=== PATIENT | female | born 1960 | race Caucasian/White ===

== ENCOUNTER → 2017-03-03 09:06 | Outpatient (CLI) | payer MEDICARE ==
[2010-04-04 15:18] VITALS: BMI 23.2
== END | disposition home or self-care (01) ==
LOC: D.CT 09:06
DX: R05 Cough (principal); Z80.1 Family history of malignant neoplasm of trachea, bronchus and lung; S22.39XA Fracture of one rib, unspecified side, initial encounter for closed fracture; R63.4 Abnormal weight loss

== ENCOUNTER 2017-08-19 10:28 | Emergency (ER) | payer MEDICARE ==
[2010-04-04 15:18] VITALS: BMI 23.2
== END 2017-08-19 13:59 | disposition home or self-care (01) ==
LOC: D.ER 10:28
DX: R07.89 Other chest pain (principal); I10 Essential (primary) hypertension; S00.83XA Contusion of other part of head, initial encounter; V43.62XA Car passenger injured in collision with other type car in traffic accident, initial encounter; Y93.89 Activity, other specified; Y92.410 Unspecified street and highway as the place of occurrence of the external cause; G40.909 Epilepsy, unspecified, not intractable, without status epilepticus; J44.9 Chronic obstructive pulmonary disease, unspecified; F17.200 Nicotine dependence, unspecified, uncomplicated

== ENCOUNTER 2020-07-08 10:08 | Inpatient (IN) | payer MEDICARE ==
[~2020-07-08] VITALS: Ht 162.6 cm; Wt 61.4 kg
[2020-07-08 10:11] VITALS: Ht 162.6 cm; Wt 61.4 kg
[2020-07-08] MEDS ORDERED: ZONEGRAN100 MG PO (10:17)
[2020-07-08] MEDS ORDERED: CARBATROL300 MG PO (10:17)
[2020-07-08] MEDS ORDERED: KEPPRA1000 MG PO (10:17)
[2020-07-08] MEDS ORDERED: LAMICTAL200 M1 PO (10:18)
[2020-07-08 10:30] VITALS: BP 144/83
--- NOTE | 2020-07-08 10:50 | NUR ---
PT TO RADIOLOGY VIA STRETCHER AT THIS TIME.
[2020-07-08 10:52] LABS: BASOPHILS 0.6 % (0-2); EOSINOPHILS 2.1 % (0-7); HEMATOCRIT 40.2 % (36.0-48.0); HEMOGLOBIN 13.5 g/dL (12-16); IMMATURE GRANULOCYTES 0.3 % (0-5); LYMPHOCYTES 19.8 % (15-50); MCH 32.8 pg (26.0-34.0); MCHC 33.6 g/dL (31.0-37.0); MCV 97.6 fL (80.0-100.0); MEAN PLATELET VOLUME 11.4 fL (7.4-10.4); MONOCYTES 6.2 % (2-11); PLATELET COUNT 191 10x3/uL (130-400); RBC 4.12 10x6/uL (4.00-5.40); RDW 12.5 % (11.5-14.5); WBC 3.4 10x3/uL (4.8-10.8)
[2020-07-08 10:58] LABS: APTT 34.8 SECONDS (22.8-39.4); INR 0.98 (0.85-1.17)
[2020-07-08 11:00] LABS: CALC OSMOLALITY 279 mosm/kg (275-300); CALCIUM 8.5 mg/dL (8.5-10.1); CHLORIDE - SERUM 105 mmol/L (98-107); CREATININE - SERUM 0.6 mg/dL (0.6-1.3); POTASSIUM - SERUM 4.2 mmol/L (3.5-5.1); SODIUM 139 mmol/L (136-145); UREA NITROGEN 11 mg/dL (7-18); eGFR NON AFRICAN AMERICAN > 90 mL/min (90-120)
[2020-07-08 11:02] LABS: GLUCOSE 147 mg/dL (74-106)
[2020-07-08 11:17] LABS: ALBUMIN 3.6 g/dL (3.4-5.0); ALKALINE PHOSPHATASE 136 U/L (30-120); ALT (SGPT) 14 U/L (10-68); BILIRUBIN - TOTAL 0.19 mg/dL (0.2-1.3); CKMB 1.5 U/L (0.0-3.6); CREATINE KINASE 63 UL (21-215); PROTEIN - SERUM 7.3 g/dL (6.4-8.2); THYROID STIMULATING HORMONE 0.82 uIU/mL (0.36-3.74); TROPONIN-I < 0.017 ng/mL (0.000-0.060)
--- NOTE | 2020-07-08 11:36 | NUR ---
STRAIGHT CATH PERFORMED TO COLLECT A URINE SAMPLE FROM THE PT.
[2020-07-08 11:39] LABS: BILIRUBIN NEGATIVE (NEGATIVE); KETONE NEGATIVE (NEGATIVE); NITRITE NEGATIVE (NEGATIVE); UROBILINOGEN NORMAL mg/dL (< 2)
[2020-07-08 11:46] LABS: UDS - AMPHET NEGATIVE QUAL (NEGATIVE); UDS - BARB NEGATIVE QUAL (NEGATIVE); UDS - BENZO NEGATIVE QUAL (NEGATIVE); UDS - COCAINE NEGATIVE QUAL (NEGATIVE); UDS - OPIATE NEGATIVE QUAL (NEGATIVE); UDS - PCP NEGATIVE QUAL (NEGATIVE); UDS - THC NEGATIVE QUAL (NEGATIVE)
[2020-07-08 14:26] LABS: CKMB 1.5 U/L (0.0-3.6); CREATINE KINASE 63 UL (21-215)
[2020-07-08 14:27] LABS: TROPONIN-I < 0.017 ng/mL (0.000-0.060)
--- NOTE | 2020-07-08 19:12 | NUR ---
REPORT GIVEN TO SHAKIR AUGUSTE
[2020-07-08 22:30] VITALS: BP 195/90
[2020-07-09 04:15] VITALS: BP 159/80
--- NOTE | 2020-07-09 07:24 | NUR ---
PT REPORT FROM Barbara AUGUSTE RN
[2020-07-09 10:34] LABS: BASOPHILS 1.1 % (0-2); EOSINOPHILS 1.4 % (0-7); HEMATOCRIT 40.7 % (36.0-48.0); HEMOGLOBIN 13.7 g/dL (12-16); LYMPHOCYTES 23.5 % (15-50); MCH 32.7 pg (26.0-34.0); MCHC 33.7 g/dL (31.0-37.0); MCV 97.1 fL (80.0-100.0); MONOCYTES 6.3 % (2-11); NEUTROPHILS 67.7 % (40-80); PLATELET COUNT 209 10x3/uL (130-400); RBC 4.19 10x6/uL (4.00-5.40); RDW 12.6 % (11.5-14.5)
[2020-07-09 10:36] LABS: WBC 4.4 10x3/uL (4.8-10.8)
[2020-07-09 10:47] LABS: ALBUMIN 3.7 g/dL (3.4-5.0); ALKALINE PHOSPHATASE 136 U/L (30-120); ALT (SGPT) 16 U/L (10-68); BILIRUBIN - TOTAL 0.41 mg/dL (0.2-1.3); CALCIUM 8.6 mg/dL (8.5-10.1); CARBON DIOXIDE 21.8 mmol/L (21.0-32.0); CHLORIDE - SERUM 105 mmol/L (98-107); POTASSIUM - SERUM 3.6 mmol/L (3.5-5.1); PROTEIN - SERUM 7.3 g/dL (6.4-8.2); SODIUM 139 mmol/L (136-145); UREA NITROGEN 10 mg/dL (7-18); eGFR NON AFRICAN AMERICAN 78 mL/min (90-120)
[2020-07-09 10:49] LABS: CALC OSMOLALITY 276 mosm/kg (275-300); CREATININE - SERUM 0.8 mg/dL (0.6-1.3); GLUCOSE 96 mg/dL (74-106)
[2020-07-09 15:28] VITALS: BP 142/68
== END 2020-07-09 15:28 | disposition home or self-care (01) | DRG 917 ==
LOC: D.ER 10:08 → D.EDHOLD 14:29
PROVIDERS: Family Medicine; ADMIT Emergency Medicine; ATTEND Emergency Medicine
DX: T42.6X1A Poisoning by other antiepileptic and sedative-hypnotic drugs, accidental (unintentional), initial encounter (principal); G92 Toxic encephalopathy; Y92.9 Unspecified place or not applicable; G40.909 Epilepsy, unspecified, not intractable, without status epilepticus

== ENCOUNTER → 2020-11-16 10:52 | Outpatient (CLI) | payer MEDICARE ==
[2020-07-08 10:11] VITALS: BMI 23.2
[~2020-11-16 10:52] MED LIST: CARBATROL300 MG PO; KEPPRA1000 MG PO; LAMICTAL200 M1 PO; ZONEGRAN100 MG PO
[2020-11-16 11:22] LABS: HEMATOCRIT 45.5 % (36.0-48.0); HEMOGLOBIN 15.2 g/dL (12-16); LYMPHOCYTES 18.6 % (15-50); MCH 32.9 pg (26.0-34.0); MCHC 33.4 g/dL (31.0-37.0); MCV 98.5 fL (80.0-100.0); MEAN PLATELET VOLUME 11.1 fL (7.4-10.4); NEUTROPHILS 73.2 % (40-80); PLATELET COUNT 172 10x3/uL (130-400); RBC 4.62 10x6/uL (4.00-5.40); RDW 12.2 % (11.5-14.5); WBC 4.8 10x3/uL (4.8-10.8)
[2020-11-16 12:14] LABS: ALBUMIN 4.2 g/dL (3.4-5.0); ALKALINE PHOSPHATASE 153 U/L (30-120); ALT (SGPT) 23 U/L (10-68); BILIRUBIN - TOTAL 0.39 mg/dL (0.2-1.3); CALC OSMOLALITY 269 mosm/kg (275-300); CARBON DIOXIDE 27.6 mmol/L (21.0-32.0); CHLORIDE - SERUM 99 mmol/L (98-107); CREATININE - SERUM 0.8 mg/dL (0.6-1.3); GLUCOSE 110 mg/dL (74-106); POTASSIUM - SERUM 4.1 mmol/L (3.5-5.1); PROTEIN - SERUM 7.7 g/dL (6.4-8.2); SODIUM 135 mmol/L (136-145); UREA NITROGEN 10 mg/dL (7-18); eGFR NON AFRICAN AMERICAN 78 mL/min (90-120)
== END | disposition home or self-care (01) ==
LOC: D.LAB 10:52
PROVIDERS: ATTEND Psychiatry & Neurology Clinical Neurophysiology
DX: R56.9 Unspecified convulsions (principal)

== ENCOUNTER 2021-02-06 16:22 | Emergency (ER) | payer MEDICARE ==
[~2021-02-06] VITALS: Ht 162.6 cm; Wt 43.2 kg
[2021-02-06 16:28] VITALS: Ht 162.6 cm; Wt 43.2 kg
[2021-02-06 16:45] LABS: BASOPHILS 1.2 % (0-2); EOSINOPHILS 2.5 % (0-7); HEMATOCRIT 44.2 % (36.0-48.0); HEMOGLOBIN 15.1 g/dL (12-16); MCH 32.9 pg (26.0-34.0); MCHC 34.1 g/dL (31.0-37.0); MCV 96.6 fL (80.0-100.0); MEAN PLATELET VOLUME 9.7 fL (7.4-10.4); MONOCYTES 7.1 % (2-11); NEUTROPHILS 59.2 % (40-80); PLATELET COUNT 200 10x3/uL (130-400); RBC 4.57 10x6/uL (4.00-5.40); RDW 13.4 % (11.5-14.5); WBC 5.2 10x3/uL (4.8-10.8)
[2021-02-06 17:10] LABS: CALC OSMOLALITY 277 mosm/kg (275-300); CALCIUM 9.1 mg/dL (8.5-10.1); CARBON DIOXIDE 29.6 mmol/L (21.0-32.0); CHLORIDE - SERUM 99 mmol/L (98-107); CREATININE - SERUM 0.8 mg/dL (0.6-1.3); GLUCOSE 88 mg/dL (74-106); POTASSIUM - SERUM 4.2 mmol/L (3.5-5.1); SODIUM 139 mmol/L (136-145); UREA NITROGEN 15 mg/dL (7-18); eGFR NON AFRICAN AMERICAN 78 mL/min (90-120)
[2021-02-06 17:26] LABS: ALKALINE PHOSPHATASE 148 U/L (30-120); ALT (SGPT) 27 U/L (10-68); BILIRUBIN - TOTAL 0.25 mg/dL (0.2-1.3); CARBAMAZEPINE (TEGRETOL) 7.2 ug/mL (4.0-12.0); CREATINE KINASE 138 UL (21-215); MAGNESIUM - SERUM 2.1 mg/dL (1.8-2.4); PRO BNP 148 pg/mL (0-125); PROTEIN - SERUM 7.8 g/dL (6.4-8.2); THYROID STIMULATING HORMONE 0.87 uIU/mL (0.36-3.74)
[2021-02-06 17:27] LABS: TROPONIN-I < 0.017 ng/mL (0.000-0.060)
[2021-02-06 19:05] VITALS: BP 199/85
== END 2021-02-06 19:06 | disposition home or self-care (01) ==
LOC: D.ER 16:22
PROVIDERS: Family Medicine
DX: R56.9 Unspecified convulsions (principal); S09.90XA Unspecified injury of head, initial encounter; S01.01XA Laceration without foreign body of scalp, initial encounter; W19.XXXA Unspecified fall, initial encounter; Y93.9 Activity, unspecified; Y92.9 Unspecified place or not applicable